=== PATIENT | male | born 1935 | race Caucasian/White ===

== ENCOUNTER 2016-12-31 10:03 | Emergency (ER) | payer MEDICARE ==
[~2016-12-31] VITALS: Ht 167.6 cm; Wt 77.1 kg
[~2016-12-31 10:03] MED LIST: AMAN100C16 PO; ASPI-1063 PO; ATOR10TA68 PO; DONE10TA44 PO; FERR140T PO; LEVO100T9 PO; LOSA25TA3 PO; TERA5CAP58 PO; VENL150C2 PO
--- NOTE | 2016-12-31 10:12 | NUR ---
Arrived via BLS ambulance for general weakness x 2 days. Family report recurrent UTI which have been treated wtih antibiotics; also rib fx, liver lac 1 month ago after which pt was taken off coumadin. Placed in room 6 . Placed on truck dock material mover, blood pressure machine and pulse oximeter. To gown for exam. Side rails up. Report given to Jeremías DOTSON.
[2016-12-31 10:13] VITALS: BP 154/108; PULSE 99; RESP 16; TEMP 97.3; O2SAT 97
[2016-12-31] MEDS ORDERED: LOSA25TA3 PO (10:13)
[2016-12-31] MEDS ORDERED: ISOS30TA6 PO (10:13)
[2016-12-31] MEDS ORDERED: AMAN100C16 PO (10:13)
[2016-12-31] MEDS ORDERED: LEVO100T9 PO (10:13)
[2016-12-31] MEDS ORDERED: DONE10TA44 PO (10:13)
[2016-12-31] MEDS ORDERED: METO25TA6 PO (10:13)
[2016-12-31] MEDS ORDERED: ASA81 PO (10:13)
[2016-12-31] MEDS ORDERED: VITD2000 PO (10:14)
[2016-12-31] MEDS ORDERED: OXYM30MI NS (10:14)
[2016-12-31] MEDS ORDERED: LORA1TAB PO (10:14)
[2016-12-31] MEDS ORDERED: MELA3TAB37 PO (10:14)
[2016-12-31] MEDS ORDERED: VENL37.510 PO (10:14)
[2016-12-31] MEDS ORDERED: LIP10 PO (10:14)
--- NOTE | 2016-12-31 10:15 | NUR ---
ER at bedside examining patient.
--- NOTE | 2016-12-31 10:20 | NUR ---
# 20 gauge angiocath placed to LAC. Use of asceptic technique. Opsite placed over site. Blood return noted. Blood for lab drawn from site. Flushed with 10 cc of normal saline. No evidence of infiltration noted. Patient tolerated well.
--- NOTE | 2016-12-31 10:30 | NUR ---
Medication reconciliation completed with information provided by . Any prior medication reconciliation on file was reviewed and corrected.
[2016-12-31 10:33] LABS: BASOPHILS % (AUTO) 0.6 % (0.0-2.0); EOSINOPHILS # (AUTO) 0.3 K/uL (0.0-0.4); EOSINOPHILS % (AUTO) 3.7 % (0.0-4.0); HEMATOCRIT 42.3 % (36-54); LYMPHOCYTES # (AUTO) 1.6 K/uL (1.0-5.5); LYMPHOCYTES % (AUTO) 19.9 % (20.5-51.5); MEAN CORPUSCULAR HEMOGLOBIN 31 pg (27-31); MEAN CORPUSCULAR HGB CONC 33 % (32-36); MEAN CORPUSCULAR VOLUME 92 fL (79.0-98.0); MONOCYTES # (AUTO) 0.9 K/uL (0.0-1.0); MONOCYTES % (AUTO) 10.7 % (1.7-9.3); NEUTROPHILS # (AUTO) 5.3 K/uL (1.8-7.7); NEUTROPHILS % (AUTO) 65.1 % (40.0-70.0); PLATELET COUNT (AUTO) 183 K/uL (130-430); RED BLOOD CELL COUNT(AUTO) 4.59 MIL/uL (4.2-6.2); RED CELL DISTRIBUTION WIDTH 14.5 % (9.0-15.0); WHITE BLOOD COUNT (AUTO) 8.1 K/uL (4.8-10.8)
--- NOTE | 2016-12-31 10:35 | NUR ---
Patient transported to radiology via gurney, accompanied by rad staff.
[2016-12-31 10:37] LABS: BILIRUBIN,URINE NEGATIVE (NEGATIVE); BLOOD, URINE NEGATIVE (NEGATIVE); CLARITY/URINE CLEAR (CLEAR); COLOR,URINE YELLOW (YELLOW); GLUCOSE,URINE NEGATIVE (NEGATIVE); KETONES,URINE NEGATIVE (NEGATIVE); LEUKOCYTE ESTERASE ,URINE NEGATIVE (NEGATIVE); NITRITE, URINE NEGATIVE (NEGATIVE); PROTEIN URINE NEGATIVE (NEGATIVE)
[2016-12-31 10:39] LABS: ANION GAP 2 (5-15); CALCIUM 8.7 mg/dL (8.4-11.0); CHLORIDE 104 mmol/L (98-107); CREATININE 0.99 mg/dL (0.55-1.30); GLUCOSE 99 mg/dL (70-99); POTASSIUM 3.5 mmol/L (3.5-5.1); SODIUM SERUM 138 mmol/L (136-145); UREA NITROGEN, BLOOD 13 mg/dL (8-21)
[2016-12-31 10:44] LABS: ALANINE AMINOTRANSFERASE 31 U/L (12-78); ALBUMIN 2.7 g/dL (3.4-4.8); ASPARTATE AMINOTRANSFERASE 18 U/L (10-37); TOTAL BILIRUBIN 1.2 mg/dL (0.0-1.0); TOTAL PROTEIN, SERUM 7.3 g/dL (6.4-8.3)
--- NOTE | 2016-12-31 10:45 | NUR ---
Pt returned from rad dept tolerated well.
[2016-12-31 10:51] LABS: INR 1.2 (0.80-1.20); PROTHROMBIN TIME 13.3 SECS (9.5-12.5)
--- NOTE | 2016-12-31 11:20 | NUR ---
Dr. Huddleston spoke with for [facility].
[2016-12-31] MEDS ORDERED: cefTRIAXone 1 GM IVPB PREMIX 50 ML IV ONE (11:30)
[2016-12-31] MEDS ORDERED: AZITHROMYCIN 500 MG in NS 250 ML IV ONE (11:30)
--- NOTE | 2016-12-31 12:00 | NUR ---
Patient to be transferred to [facility]. Is being transferred due to higher level of care. Receiving facility has accepting physician and available space. ER physician has signed transfer form. Patient or responsible constitution party has agreed to transfer and signed form. Patient belongings inventoried and will be sent with patient. Copy of nursing notes, lab reports, EKG, Physicians Orders and X-rays to be sent with patient. Report called to [facility] ER at receiving facility. Receiving physician is . [facility] ambulance service has been called for transfer. ETA is 1245.
[2016-12-31] MEDS ORDERED: AZITHROMYCIN 500 MG/VIAL (ZITHROMAX) IV ONE (12:01)
--- NOTE | 2016-12-31 12:30 | NUR ---
Pt tolerating medication well.
--- NOTE | 2016-12-31 12:50 | NUR ---
[facility] at bedside for transport.
[2016-12-31 12:51] VITALS: BP 147/107; PULSE 98; RESP 16; TEMP 97.3; O2SAT 97
== END 2016-12-31 12:50 | disposition short-term general hospital (02) ==
LOC: SED 10:03
DX: J18.9 Pneumonia, unspecified organism (principal); R53.1 Weakness; E11.9 Type 2 diabetes mellitus without complications; Z86.79 Personal history of other diseases of the circulatory system; Z79.82 Long term (current) use of aspirin; Z79.899 Other long term (current) drug therapy; Z88.8 Allergy status to other drugs, medicaments and biological substances
CPT/HCPCS: 36415; 70450; 71010; 80053; 81003; 83605; 84484; 85025; 85610; 85730; 87040; 87086; 93005; 96365; 96367; 99285; J0456; J0696